=== PATIENT | male | born 1995 | race Caucasian/White ===

== ENCOUNTER 2025-03-07 11:31 | Emergency (ER) | payer OTHER, SELFPAY ==
[2025-03-07 11:36] VITALS: BP 137/68; PULSE 68; RESP 16; TEMP 37.4; O2SAT 98
--- OUTSIDE RECORDS SUMMARY | 2025-03-07 11:37 | XMS_ITS | Clinical Summary ---
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 Gender Identity Not on file Sexual Orientation Not on file Plan of Treatment Upcoming Encounters Date Type Department Care Team ([facility] st Contact Info) Description 03/29/2025 1:30 PM CHIP MACHINE OPERATOR Office Visit [facility] [place] [address] [place] [address] Bob Simms, PAC [address] [place] [address] Health Maintenance Due Date Last Done Comments Hepatitis C Virus (HCV) Screening 1996 TdaP Immunization 1996 Varicella Immunization (1 of 2 - 13+ 2-dose series) 2009 Human Papillomavirus (HPV) Immunization (3 - Male 3-dose series) 11/04/2014 08/12/2014, 04/13/2013 Hepatitis B Immunization (1 of 3 - 19+ 3-dose series) 05/13/2015 Influenza Immunization (#1) 2024 04/13/2013 SARS-COV-2 Immunization (1 - season) 2024 Respiratory Syncytial Virus (RSV) Immunization (Adult) (1 - 1-dose 75+ series) 05/13/2071 Meningococcal Immunization (ACWY) Completed 08/12/2014 Pneumococcal Immunization Combined Aged Out No longer eligible b ased on patient's age to complete this topic Rotavirus Immunization Aged Out No lo nger eligible based on patient's age to complete this topic
--- OUTSIDE RECORDS SUMMARY | 2025-03-07 11:37 | XMS_ITS | Clinical Summary ---
Author Organization [facility] Address [address] [place] [address] Care Team Providers Care Correctional Supervisor Lieutenant Name Role Phone Moriah Faustin MD Primary Care Provider Source Comments [facility],non-owned Affiliates and Associated Physician Practices is amultiple site organization consisting of ambulatory clinics and hospital sitesin [place], [place], [place] and [place]. This disclosure is being madepursuant to the Care Everywhere program and may not contain all information available regarding this patient. Last updated 17.[facility] Allergies No known active allergies Medications * Be aware that medications may not be up to date on this document. Alwaysverify current medications with the patient. methylphenidate CR (METADATE CD) 40 MG capsule Take 40 mg by mouth daily before breakfast. Takes along with a 10 mg tab of Metadate Active methylphenidate CR (METADATE CD) 10 MG capsule Take 10 mg by mouth daily before breakfast. Takes along with a 40 mg tablet of Metadate Active aripiprazole (ABILIFY) 2 MG tablet Take 2 mg by mouth daily. Active mirtazapine (REMERON) 15 MG tablet Take 15 mg by mouth at bedtime. Active sulfamethoxazol e-trimethoprim (SEPTRA) 200-40 MG/5ML suspension Take 20 mL by mouth 2 times daily. For 3 days 120 mL 0 0 Active phenazopyridine (PYRIDIUM) 10 mg/ml Take 5 mL by mouth 3 times daily with meals. For 2 days 6 mL 0 0 Active polyethylene glycol 3350 (MIRALAX) powder Take 8.5 g by mouth daily. Take 1/2 capful daily, adjust as needed. Decrease to every other day if diarrhea develops. Increase to full capful if constipation persists. 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 Gender Identity Not on file Sexual Orientation Not on file Last Filed Vital Signs Vital Sign Reading Time Taken Comments Blood Pressure 100/66 11/22/2009 4:30 PM CDT Pulse 84 11/22/2009 5:44 PM CDT Temperature 36.6 C (97.8 F) 11/22/2009 4:30 PM CDT Respiratory Rate 24 11/22/2009 5:44 PM CDT Oxygen Saturation 100% 11/22/2009 4:15 PM CDT Inhaled Oxygen Concentration - - Weight 39.7 kg (87 lb 8.4 oz) 11/22/2009 12:37 P M CDT Height 152.5 cm (5' 0.04) 11/22/2009 12:37 PM C DT Body Mass Index 17.07 11/22/2009 12:37 PM CDT Plan of Treatment Health Maintenance Due Date Last Done Comments HIV SCREENING 05/13/2011 HEPATITIS C SCREENING 05/08/2014 DTAP/TDAP/TD VACCINES (1 - Tdap) 05/13/2015 HEPATITIS B VACCINE (1 of 3 - 19+ 3-dose series) 05/13/2015 HPV VACCINE (1 - 3-dose SCDM series) 05/13/2023 DEPRESSION SCREENING 03/11/2024 COVID-19 VACCINE (1 - 2024-2 6 season) 2024 INFLUENZA VACCINE (#1) 2024 ZOSTER VACCINE (1 of 2) 2046 HIB VACCINE Aged Out No longer eligi ble based on patient's age to complete this topic MENINGOCOCCAL (Group B) VACC INE SHARED DECISION-MAKING Aged Out No longer eligibl e based on patient's age to complete this topic MENINGOCOCCAL GROUPS A/C/Y/W VACCINE Aged Out No longer eligible b ased on patient's age to complete this topic PNEUMOCOCCAL VACCINE Aged Out No long er eligible based on patient's age to complete this topic Care Teams Correctional Supervisor Lieutenant Relationship Specialty Start Date End Date Moriah Faustin MD [address] [place] [address] PCP - General 07/10/21
[2025-03-07 11:59] LABS: EDCOVIDSCREEN Negative (Negative); EDINFLUASCREEN Positive (Negative); EDINFLUBSCREEN Negative (Negative)
--- NOTE | 2025-03-07 12:15 | ED.URI ---
HPI - URI/Sore Throat General Chief Complaint: Upper Respiratory Infection Stated Complaint: covid exposure Time Seen by Provider: 03/07/25 12:00 Source: patient and RN notes reviewed Mode of arrival: ambulatory Limitations: no limitations History of Present Illness HPI Narrative: 29-year-old male patient presents Express Care complaining of upper respiratory symptoms for 2 days. Patient reports cough, congestion, body aches, chills, sweats. Patient denies any difficulty breathing, fevers, nausea, vomiting, chest pain and difficulty breathing, or any other symptoms. Patient denies any significant past medical problems. Patient denies getting the flu shot this year. Related Data Allergies Allergy/AdvReac Type Severity Reaction Status Date / Time No Known Allergies Allergy Mild Verified 03/07/25 11:46 Review of Systems Review of Systems: CONSTITUTIONAL: Denies fever. Positive for body aches, chills, or sweats. EYES: Denies visual changes, redness, or discharge. ENT: Positive for congestion. Negative for rhinorrhea, sore throat, or otalgia. CARDIOVASCULAR: Denies chest pain, palpitations, or edema. RESPIRATORY: Positive for cough. Negative for wheezing Or dyspnea. GASTROINTESTINAL: Denies abdominal pain, nausea, vomiting, or diarrhea. GENITOURINARY: Denies dysuria or hematuria. SKIN: Denies rash or itching. MUSCULOSKELETAL: Denies back pain, joint pain, or myalgia. NEUROLOGIC: Denies headache, numbness, or weakness. PSYCHIATRIC: Denies anxiety or depression. All other systems reviewed are negative, except as documented in HPI. PMFSH Comments At the time of my signature, I reviewed and agree with the nursing past medical, surgical, social, and family history. There is no relevant family history pertinent to the patient complaint. Exam Narrative: GENERAL: This is a well-nourished, well-developed adult, in no apparent distress. They are non ill-appearing, nontoxic appearing. HEAD: normocephalic, atraumatic. EYES: Sclera clear/white. Conjunctiva normal. Vision is grossly intact. Extraocular movements intact EARS: External ears normal, auditory canals clear and without drainage, TMs normal without perforation. Hearing grossly intact. NOSE: External nose normal with no obvious nasal discharge, nasal turbinates erythematous, no rhinorrhea. THROAT: Mucous membranes moist, posterior pharynx erythematous with PND Uvula midline. NECK: Neck supple, non-tender without lymphadenopathy, masses or thyromegaly. CARDIOVASCULAR: Regular rate and rhythm without murmurs, gallops, or rubs. RESPIRATORY: Clear to auscultation. Breath sounds equal bilaterally. No wheezes, rales, or rhonchi. SKIN: warm, Dry, intact with no suspicious lesions or rash, good texture and turgor. NEURO: awake, alert, and oriented to person, place and time. There were no obvious focal neurologic abnormalities. EXTREMITIES: No joint tenderness, effusion, or edema noted. BACK: Nontender without deformity. Course Course Level of Care: Express Care Visit Vital Signs Vital signs: Vital Signs Temperature 99.3 F 03/07/25 11:36 Pulse Rate 68 03/07/25 11:36 Respiratory Rate 16 03/07/25 11:36 Blood Pressure 137/68 03/07/25 11:36 Pulse Oximetry 98 03/07/25 11:36 Oxygen Delivery Room Air 03/07/25 11:36 Temperature 99.3 F 03/07/25 11:36 Pulse Rate 68 03/07/25 11:36 Respiratory Rate 16 03/07/25 11:36 Blood Pressure 137/68 03/07/25 11:36 Pulse Oximetry 98 03/07/25 11:36 Oxygen Delivery Room Air 03/07/25 11:36 [facility] Narrative Medical decision making narrative: Patient positive for influenza A. Offered patient Tamiflu and he would like it. Will send prescription Tamiflu to pharmacy. Discussed supportive care. Discussed physical exam findings. Advised supportive measures and signs/symptoms to go to the ER. Pt is appropriate for outpt treatment and f/u. Differential Diagnosis Differential Diagnosis: Differential diagnostic considerations for upper respiratory infection include upper respiratory infection, croup, otitis media, sinusitis, viral infection, bronchitis, influenza, pharyngitis, strep, uvulitis. Lab Data [facility] Lab Attestation statement: I personally reviewed the patient's lab results. Labs: Lab Results 03/07/25 Range/Units 11:42 POC Influenza A Ag Positive (Negative) POC Influenza B Ag Negative (Negative) POC SARS CoV-2 Ag Negative (Negative) Critical Care Time Critical Care Time Critical Care Time: No Discharge Plan Discharge Clinical Impression: Influenza Patient Disposition: Home Condition: Stable Instructions: Antibiotic Form, Influenza (ED) Additional Instructions: Tamiflu as directed. You should avoid crowds until you are fever free for 24 hours without the use of fever reducing medications, or the symptoms are improved Rest. Drink plenty of fluids. You may take ibuprofen 600 mg to 800 mg every 6-8 hours. Do not exceed more than 800 mg of ibuprofen per dose. Do not exceed more than 3200 mg ibuprofen in a day. You may take up to 1000 mg Tylenol every 6-8 hours. Do not exceed 1000 mg per dose, do exceed more than 4000 mg of Tylenol in a day. Recommend Flonase spray and Zyrtec (or Claritin/Julia) for sinus pressure/congestion Use benzonatate tablets as needed for cough. Follow up with your primary care provider in 3-5 days. Go to the ER for worsening symptoms, chest pain, difficulty breathing, vomiting, weakness, or any serious concerns Patient Language: Kiswahili Prescriptions: New oseltamivir [Tamiflu] 75 mg capsule 75 mg PO Q12H 5 Days Qty: 10 0RF Follow-up/Referrals: PHYSICIAN,PARKING METER SERVICER [Primary Care Provider, Internal Medicine] Stand Alone Forms: Work/School Release IP Time of Disposition: 12:07
== END 2025-03-07 12:12 | disposition home or self-care (01) ==
DX: J10.1 Influenza due to other identified influenza virus with other respiratory manifestations (principal); Z20.822 Contact with and (suspected) exposure to COVID-19
CPT/HCPCS: 87426; 87804; 99213; G0463